=== PATIENT | male | born 1990 | race African-American/Black ===

== ENCOUNTER 2019-04-24 00:43 | Emergency (ER) | payer OTHER ==
[~2019-04-24] VITALS: Ht 160 cm; Wt 54.1 kg
[2019-04-24 04:27] VITALS: BP 128/69
== END 2019-04-24 04:28 | disposition home or self-care (01) ==
LOC: EMS 00:47
DX: B30.9 Viral conjunctivitis, unspecified (principal)

== ENCOUNTER 2019-06-29 21:29 | Emergency (ER) | payer OTHER ==
[~2019-06-29] VITALS: Ht 170.2 cm; Wt 57.7 kg
[2019-06-29 22:04] LABS: APPEARANCE,URINE TURBID (CLEAR); BILIRUBIN,URINE NEGATIVE (NEGATIVE); GLUCOSE, URINE (UA) NEGATIVE (NEGATIVE); KETONES,URINE NEGATIVE (NEGATIVE); LEUKOCYTE ESTERASE ,URINE SMALL (NEGATIVE); NITRATE,URINE NEGATIVE (NEGATIVE); OCCULT BLOOD,URINE NEGATIVE (NEGATIVE); PH,URINE 7.5 (5.0-8.0); PROTEIN,URINE TRACE (NEGATIVE)
[2019-06-29 22:10] LABS: AMORPHOUS SEDIMENT,UR Many /LPF (None Seen); BACTERIA,URINE Few /HPF (None Seen); RBC,URINE 0-2 /HPF (0-2); SQUAMOUS EPITHELIAL CELL,UR Few /LPF (None Seen)
[2019-06-29] MEDS ORDERED: LIDOCAINE/PF 1% 2 ML VIAL IM ONE (22:15)
[2019-06-29] MEDS ORDERED: CefTRIAXone SODIUM 1 GM/VIAL IM ONE (22:15)
[2019-06-29] MEDS ORDERED: AZITHROMYCIN 250 MG TABLET PO ONE (22:15)
[2019-06-29 22:34] VITALS: BP 113/70
== END 2019-06-29 22:45 | disposition home or self-care (01) ==
LOC: EMS 21:31
DX: N34.2 Other urethritis (principal)
CPT/HCPCS: 81001; 87086; 96372; 99283; J0696; J3490; 87491; 87591

== ENCOUNTER 2020-02-12 12:06 | Emergency (ER) | payer OTHER ==
[~2020-02-12] VITALS: Ht 170.2 cm; Wt 56.8 kg
[2020-02-12] MEDS: HYDROCODONE/ACETAMINOPHEN 5-325 MG TABLET PO ONE (14:11)
[2020-02-12] MEDS: PROPARACAINE HCL 0.5% 15 ML OPHTHALMIC SOLUTION OU ONE (14:32)
[2020-02-12] MEDS: FLUORESCEIN SODIUM 1 MG STRIP OU ONE (14:32)
[2020-02-12 16:00] VITALS: BP 134/95
== END 2020-02-12 17:00 | disposition home or self-care (01) ==
LOC: EDUNIT# 12:06 → EMS 12:10
DX: S05.32XA Ocular laceration without prolapse or loss of intraocular tissue, left eye, initial encounter (principal); S01.20XA Unspecified open wound of nose, initial encounter; R03.0 Elevated blood-pressure reading, without diagnosis of hypertension; Y04.2XXA Assault by strike against or bumped into by another person, initial encounter; Y93.89 Activity, other specified; Y92.89 Other specified places as the place of occurrence of the external cause; Y99.8 Other external cause status